=== PATIENT | female | born 1975 | race Caucasian/White ===

== ENCOUNTER 2024-08-25 18:17 | Observation (INO) | payer BC ==
[~2024-08-25] VITALS: Ht 170.2 cm; Wt 106.6 kg
[~2024-08-25 18:17] MED LIST: LISINOPRIL10 MG PO
[2024-08-25] MEDS ORDERED: HYDROCHLOROTHIA25 MG PO (18:29)
[2024-08-25] MEDS ORDERED: ZEPBOUND5 MG/0.5 M SQ (18:32)
[2024-08-25] MEDS ORDERED: ONDANSETRON ODT8 MG PO (18:37)
[2024-08-25] MEDS ORDERED: LEXAPRO10 MG PO (18:37)
[2024-08-25] MEDS ORDERED: FLONASE ALLERG9.9 ML INH (18:37)
[2024-08-25] MEDS ORDERED: ALPRAZOLAM0.25 M1 PO (18:37)
[2024-08-25] MEDS ORDERED: BIKTARVY 50-201 EACH PO (18:37)
[2024-08-25] MEDS: Morphine 4mg INJECTION 4 MG/ML INJ IV ONE (18:51)
[2024-08-25] MEDS: ONDANSETRON HCL INJ 2MG/ML 2ML 2 MG/ML VIAL IV STA (18:51)
[2024-08-25] MEDS: SODIUM CHLORIDE 0.9% 1000ML 1,000 ML IV ONE (18:52)
[2024-08-25 19:07] LABS: BASOPHILS % 0.3 % (0.0-1.0); EOSINOPHILS # (AUTO) 0.1 (0.0-0.4); EOSINOPHILS % 1.2 % (0.0-6.0); HEMATOCRIT 38.8 % (34.2-44.1); HEMOGLOBIN 13.8 g/dL (12.0-16.0); LYMPHOCYTES # (AUTO) 1.2 (1.0-3.2); LYMPHOCYTES % 15.5 % (18.0-39.1); MEAN CORPUSCULAR HEMOGLOBIN 30.5 pg (28-32); MEAN CORPUSCULAR HGB CONC 35.6 g/dL (31-35); MEAN CORPUSCULAR VOLUME 85.8 fL (81-99); MONOCYTES # (AUTO) 0.3 (0.2-0.8); NEUTROPHILS % 78.7 % (38.7-80.0); PLATELET COUNT 179 x10e3/uL (140-360); RED BLOOD COUNT 4.52 x10e6/uL (3.6-5.1); RED CELL DISTRIBUTION WIDTH 15.3 % (11.7-14.4); WHITE BLOOD COUNT 7.57 x10e3/uL (4.8-10.8)
[2024-08-25 19:18] LABS: CLARITY,URINE SL CLOUDY (CLEAR); COLOR,URINE YELLOW (YELLOW)
[2024-08-25 19:19] LABS: BILIRUBIN,URINE NEGATIVE (NEGATIVE); GLUCOSE, URINE NEGATIVE (NEGATIVE); KETONES,URINE 2+ (NEGATIVE); LEUKOCYTE ESTERASE ,URINE NEGATIVE (NEGATIVE); NITRITE,URINE NEGATIVE (NEGATIVE); PH,URINE 8 (5 - 7); PROTEIN,URINE DIPSTICK TRACE (NEGATIVE); URINE UROBILINOGEN 0.2 mg/dL (0.2 - 1)
[2024-08-25 19:22] LABS: BACTERIA,URINE RARE /HPF; EPITHELIAL CELLS,URINE RARE /LPF; RBC,URINE >50 /HPF (0-5); WBC,URINE (MAN) 0-5 /HPF (0-5)
[2024-08-25 19:24] LABS: LIPASE 82 U/L (8-78)
[2024-08-25 19:25] LABS: ALBUMIN 4.4 g/dL (3.5-5.0); ALBUMIN/GLOBULIN RATIO 0.9 (0.8-2.0); ANION GAP 19.1 mmol/L (8-16); CALCIUM 9.7 mg/dL (8.4-10.2); CREATININE, SERUM 0.94 mg/dL (0.57-1.11); TOTAL PROTEIN 9.1 g/dL (6.5-8.1)
[2024-08-25 19:29] LABS: POTASSIUM 3.1 mmol/L (3.5-5.1)
[2024-08-25 19:32] LABS: TROPONIN I < 0.001 ng/mL (0-0.300)
[2024-08-25] MEDS: KETOROLAC TROMETHAMINE 30 MG/ML VIAL IV STA (19:32)
[2024-08-25] MEDS ORDERED: IOPAMIDOL 370 MG/ML 100 ML INFUS..BTL INJ ONE (19:33)
[2024-08-25 21:00] VITALS: TEMP 98.1
[2024-08-25] MEDS: HYDROMORPHONE 1MG/1ML INJ IV STA (21:33)
[2024-08-25 21:45] VITALS: PULSE 92; RESP 19
[2024-08-25] MEDS ORDERED: TAMSULOSIN HCL 0.4 MG CAP PO SCH (21:45)
[2024-08-25] MEDS ORDERED: HYDRALAZINE HCL 20 MG/ML VIAL IV PRN (23:00)
[2024-08-25 23:24] VITALS: PULSE 89; RESP 16; O2SAT 96
[2024-08-26] VITALS (8 sets, daily range): BP systolic 101–147; BP diastolic 57–76; PULSE 72–85; RESP 18–20; TEMP 97–98.3; O2SAT 97–100
[2024-08-26] MEDS: SODIUM CHLORIDE 0.9% 1000ML 1,000 ML IV SCH (00:34)
[2024-08-26] MEDS: ONDANSETRON HCL INJ 2MG/ML 2ML 2 MG/ML VIAL IV PRN (04:35)
[2024-08-26] MEDS: HYDROMORPHONE 1MG/1ML INJ IV PRN (04:35)
[2024-08-26 05:36] LABS: BASOPHILS % 0.3 % (0.0-1.0); EOSINOPHILS % 0.2 % (0.0-6.0); HEMATOCRIT 34.2 % (34.2-44.1); LYMPHOCYTES # (AUTO) 1.5 (1.0-3.2); LYMPHOCYTES % 23.9 % (18.0-39.1); MEAN CORPUSCULAR HEMOGLOBIN 31.1 pg (28-32); MEAN CORPUSCULAR HGB CONC 35.1 g/dL (31-35); MEAN CORPUSCULAR VOLUME 88.6 fL (81-99); MONOCYTES # (AUTO) 0.4 (0.2-0.8); MONOCYTES % 7.1 % (4.4-11.3); NEUTROPHILS # (AUTO) 4.2 (2.1-6.9); NEUTROPHILS % 68.2 % (38.7-80.0); PLATELET COUNT 152 x10e3/uL (140-360); RED BLOOD COUNT 3.86 x10e6/uL (3.6-5.1); RED CELL DISTRIBUTION WIDTH 15.4 % (11.7-14.4); WHITE BLOOD COUNT 6.16 x10e3/uL (4.8-10.8)
[2024-08-26 05:47] LABS: ANION GAP 15.4 mmol/L (8-16); CALCIUM 8.4 mg/dL (8.4-10.2); CREATININE, SERUM 0.84 mg/dL (0.57-1.11)
[2024-08-26 05:48] LABS: POTASSIUM 3.4 mmol/L (3.5-5.1)
[2024-08-26] MEDS: POTASSIUM CHLORIDE 10MEQ/100ML 200 ML IV ONE (09:21)
[2024-08-26] MEDS ORDERED: ONDANSETRON HCL 4 MG ORAL DISINTEGRATING TAB PO PRN (12:30)
[2024-08-26] MEDS: KETOROLAC TROMETHAMINE 10 MG TAB PO PRN (13:51)
[2024-08-26] MEDS ORDERED: KETOROLAC TROME10 MG PO (17:43)
[2024-08-26] MEDS ORDERED: ONDANSETRON ODT8 MG PO (17:43)
== END 2024-08-26 18:45 | disposition home or self-care (01) ==
LOC: ER 18:27 → ERHOLD 21:50 → MED/SURG 08-26 00:16
PROVIDERS: ADMIT Internal Medicine; ATTEND Internal Medicine
DX: N20.1 Calculus of ureter (principal); R31.9 Hematuria, unspecified; I10 Essential (primary) hypertension; Z21 Asymptomatic human immunodeficiency virus [HIV] infection status; E66.09 Other obesity due to excess calories; Z68.36 Body mass index [BMI] 36.0-36.9, adult
CPT/HCPCS: 36415 ×2; 74177; 80048; 80053; 81001; 83690; 84484; 84702; 85025 ×2; 93005; 94799 ×2; 99284; G0378 ×2; J0696; J1171 ×2; J1885; J2270; J2405 ×2; J3480; J7030 ×2; Q0162; Q9967